=== PATIENT | female | born 1950 | race Caucasian/White ===

== ENCOUNTER 2017-10-21 11:25 | Day surgery (SDC) | payer OTHER ==
[2017-10-21] MEDS ORDERED: LIDOCAINE 2% (SDV) 5 ML INJ (13:59)
[2017-10-21] MEDS ORDERED: PROPOFOL 60 ML (13:59)
== END 2017-10-21 16:13 | disposition home or self-care (01) ==
LOC: GIL 11:25
DX: Z12.11 Encounter for screening for malignant neoplasm of colon (principal); K62.1 Rectal polyp; I10 Essential (primary) hypertension
CPT/HCPCS: 45380; 88305